=== PATIENT | male | born 1970 | race Caucasian/White ===

== ENCOUNTER 2023-06-03 06:53 | Day surgery (SDC) | payer BC, SELFPAY ==
[2023-06-03] MEDS: LACTATED RINGERS 1,000 ML 100 ML IV (07:30)
[2023-06-03 07:31] VITALS: BP 154/98; PULSE 64; RESP 16; TEMP 36.3; O2SAT 98; BMI 35.5
--- NOTE | 2023-06-03 07:49 | P.HP_ITS ---
History of Present Illness History of Present Illness Date Patient Seen: 06/03/23 Date of Onset of Symptoms: 06/03/23 Chief complaint: Screening Colonoscopy Narrative: Here for colon cancer screening. Asymptomatic. FOR[facility] Social History household members: spouse Smoking Status: Never smoker alcohol intake: current Meds Home Medications and Allergies Allergies Allergy/AdvReac Type Severity Reaction Status Date / Time adhesive tape Allergy Severe blisters Verified 06/03/23 07:21 immediately Review of Systems Review of Systems ROS: Yes All systems reviewed with the patient and are negative except as otherwise documented Exam Vital Signs (past 8 hours): - 06/03/23 07:31 Temperature 97.4 F L Pulse Rate 64 Respiratory Rate 16 Blood Pressure 154/98 H Pulse Oximetry 98 Oxygen Delivery Method Room Air Oxygen Delivery Method Room Air Const General: cooperative HENMT Head: normal to inspection Eyes General: appearance normal, both eyes and all related structures Neck Neck: normal visual inspection Chest Chest: normal inspection of the chest Resp Effort & Inspection: normal respiratory effort Cardio Rate: regular rate GI Inspection: normal to inspection Skin General: no rashes or lesions noted Neuro General: patient alert and patient awake Extrem General: normal to inspection and no pedal edema Psych Appearance: grossly normal Assessment & Plan Assessment & Plan narrative: 52-year-old male reporting for colon cancer screening. Colonoscopy is pursued today.
--- NOTE | 2023-06-03 07:56 | PM.PREOP ---
Pre-operative Note Interval Note History & Physical reviewed/Exam performed by Physician: Yes Changes to H&P: No ASA Class (for procedural sedation): II
--- NOTE | 2023-06-03 08:12 | PM.OP.COLON ---
Operative Date/Time/Diagnoses Date of procedure: 06/03/23 Time of procedure: 08:12 Pre-op diagnosis: Colon cancer screening Post-op diagnosis: same Procedure & Clinicians Study performed: Colonoscopy Same procedure as scheduled: Yes Indications: Colon cancer screening Surgeon: Orlando Edmonds Procedure Notes SCOAP/Timeout: Done Procedure in detail: After the risks and benefits were explained, written and verbal informed consent was obtained. The patient was brought into the procedure room and placed into the left lateral decubitus position. Please see anesthesia notes for sedation details. Digital rectal examination was accomplished. The scope was introduced into the patient and advanced under direct visualization to the cecum as identified by the appendiceal orifice and ileocecal valve. The scope was slowly withdrawn to carefully examine the mucosa for any defects or lesions. Comprehensive imaging was accomplished throughout the rectum including the dentate line. The colon was decompressed, the scope was then removed from the patient who tolerated the procedure well. Adult colonoscope Bowel prep adequate Scope withdrawal time: 7 minutes Sedation minutes: 11 Specimen(s): none sent Complications: none Impression: No significant polyps mass lesions or inflammatory features identified throughout. The patient had mild grade 1 internal hemorrhoids with hypertrophied anal papillae. Endoscopic diagnosis 1. Mild grade 1 internal hemorrhoids 2. Otherwise visually unremarkable colonoscopy Post-procedure Plan for aftercare: Repeat colonoscopy 10 years for screening purposes. Disposition: PACU
[2023-06-03 08:15] VITALS: BP 103/64; PULSE 65; RESP 12; TEMP 36.2; O2SAT 95
[2023-06-03 08:19] VITALS: BP 143/89; PULSE 71; RESP 12; TEMP 36.2; O2SAT 95
[2023-06-03 08:24] VITALS: BP 136/95; PULSE 60; RESP 12; TEMP 36.2; O2SAT 95
== END 2023-06-03 08:49 | disposition home or self-care (01) ==
PROVIDERS: PCP Internal Medicine; Referring Provider Internal Medicine Gastroenterology; Visit Provider Internal Medicine Gastroenterology
PROC: 0DJD8ZZ Inspection of Lower Intestinal Tract, Via Natural or Artificial Opening Endoscopic (ICD-10-PCS; CPT 45378; principal; 2023-06-03 08:00)
DX: Z12.11 Encounter for screening for malignant neoplasm of colon (principal); K64.0 First degree hemorrhoids; K64.4 Residual hemorrhoidal skin tags
CPT/HCPCS: 45378; J2704